=== PATIENT | female | born 1945 | race Caucasian/White ===

== ENCOUNTER 2019-07-29 | Emergency (ER) | payer MEDICARE ==
[2019-07-29] MEDS ORDERED: GABAPENTIN100 MG PO (12:43)
[2019-07-29] MEDS ORDERED: SINGULAIR10 MG PO (12:44)
[2019-07-29] MEDS ORDERED: PRAVASTATIN20 MG PO (12:44)
[2019-07-29] MEDS ORDERED: VITAMIN D35000 UNI1 PO (12:45)
[2019-07-29] MEDS ORDERED: SYMBICORT1 AE1 IN (12:45)
[2019-07-29] MEDS ORDERED: PRILOSEC20 MG/CAP PO (12:46)
== END 2019-07-29 13:50 | disposition home or self-care (01) ==
DX: S80.02XA Contusion of left knee, initial encounter (principal); S00.83XA Contusion of other part of head, initial encounter; M79.641 Pain in right hand; I10 Essential (primary) hypertension; W18.39XA Other fall on same level, initial encounter